=== PATIENT | female | born 1945 | race Caucasian/White ===

== ENCOUNTER → 2025-03-29 09:45 | Outpatient (REF) | payer MEDICARE, OTHER, SELFPAY | LOC: DHSLP 09:45 | PROVIDERS: ATTENDING PHYSICIAN Internal Medicine Critical Care Medicine; FAMILY PHYSICIAN Internal Medicine | DX: G47.8 Other sleep disorders (principal); R06.83 Snoring | CPT/HCPCS: 95810 ==